=== PATIENT | male | born 1985 | race Asian ===

== ENCOUNTER 2021-09-15 08:22 | Day surgery (SDC) | payer OTHER ==
[2021-09-15] VITALS (10 sets, daily range): BP systolic 122–150; BP diastolic 62–91
[~2021-09-15] VITALS: Ht 162.6 cm; Wt 63.0 kg
--- NOTE | 2021-09-15 08:00 | NUR ---
PATIENT TO ROOM AMBULATORY. ADMISSION ASSESSMENT COMPLETED AT THIS TIME. CONSENT OBTAINED. DR MADDOX NOTIFIED. NEW ORDERS RECEIVED. IV ESTABLISHED. LABS SENT FOR REFERENCE. ORIENTED PATIENT TO ROOM AND UNIT. CALL LIGHT IN REACH. WILL CONTINUE TO MONITOR.
[2021-09-15 09:16] LABS: HEMATOCRIT 38.1 % (39.0-50.0); HEMOGLOBIN 12.2 g/dl (14.0-18.0); IMMATURE GRANULOCYTES 0.3 % (0.0-5.0); MEAN CELL VOLUME 93.8 fL CALC (80.0-100.0); NEUT# 4.22 thou/uL (1.82-7.42); RED BLOOD COUNT 4.06 mill/uL (4.70-6.10); RED CELL DISTRI WIDTH 12.4 % (11.5-15.5)
[2021-09-15 09:55] LABS: ALBUMIN 4.3 g/dL (3.2-5.0); ALKALINE PHOSPHATASE 63 u/l (38-126); ANION GAP 14 (6-22 (CALC)); BILIRUBIN, TOTAL 0.6 mg/dL (0.0-1.4); BUN 24 mg/dL (9-20); BUN/CREATININE RATIO 38 (12-20 (CALC)); CARBON DIOXIDE 27 mmol/l (22-30); CHLORIDE 103 mmol/l (95-108); CREATININE 0.6 mg/dL (0.7-1.3); GFR > 60 ML/MIN (>=60 (CALC)); GFR FOR AFR.AMER. > 60 ML/MIN (>=60 (CALC)); POTASSIUM 4.9 mmol/l (3.5-5.1); SGOT/AST 32 u/l (17-59); SODIUM 139 mmol/l (137-146); TOTAL PROTEIN 7.3 g/dL (6.3-8.2)
--- NOTE | 2021-09-15 20:00 | NUR ---
PT RESTING IN BED, NO SIGNS OF DISTRESS NOTED, RESP EVEN AND UNLABORED. PT ALERT AND ORIENTED TO SELF, DISCUSSED POC, NEEDS REINFORCMENT DUE TO ANR PROCEDURE. SKIN INTACT, O2 2L IN PLACE, SAFETY PRECAUTIONS DISCUSSED, BED ALARM FOR SAFETY, ASSESSMENT REVIEW COMPLETED, CALL LIGHT IN REACH,CONTINUE TO MONITOR.
--- NOTE | 2021-09-15 21:06 | NUR ---
PT CALLED OUT, APPEARS RESTLESS, REQUESTING FOR SOMETHING TO HELP HIM SLEEP, PT MEDICATED PER MAR, PT STATES HE IS HOT, ROOM COOLED AND BLANKET REMOVED, REMAINED WITH SHEET. BED ALARM IN PLACE, CALL LIGHT IN REACH,CONTINUE TO MONITOR.
--- NOTE | 2021-09-15 22:59 | NUR ---
PT IN BED RESTLESS, VITALS OBTAINED. PT GIVEN WATER, TOLERATED WELL. MEDICATED PER OCT. ENCOURAGED PO FLUIDS, PT VERBALIZED UNDERSTANDING. CALL LIGHT IN REACH, BED ALARM FOR SAFETY, CONTINUE TO MONITOR.
--- NOTE | 2021-09-16 | NUR ---
PT RESTING IN BED WITH EYES CLOSED, RESP EVEN AND UNLABORED. NO SIGNS OF DISTRESS NOTED, CALL LIGHT IN REACH,CONTINUE TO MONITOR.
--- NOTE | 2021-09-16 03:57 | NUR ---
PT RESTING IN BED, NO SIGNS OF DISTRESS NOTED, RESP EVEN AND UNLABORED. PT MEDICATED PER MAR, VOICES NO NEEDS OR COMPLAINTS AT THIS TIME, CALL LIGHT IN REACH,CONTINUE TO MONITOR.
[2021-09-16 04:00] VITALS: BP 156/90
[2021-09-16 05:14] LABS: HEMATOCRIT 38.4 % (39.0-50.0); HEMOGLOBIN 12.7 g/dl (14.0-18.0); IMMATURE GRANULOCYTES 0.3 % (0.0-5.0); MEAN CELL VOLUME 89.9 fL CALC (80.0-100.0); MEAN CORPUSCULAR HGB 29.7 pG CALC (26.0-32.0); MEAN CORPUSCULAR HGB CONC 33.1 g/dL CAL (32.0-36.0); NEUT# 8.7 thou/uL (1.82-7.42); RED BLOOD COUNT 4.27 mill/uL (4.70-6.10); RED CELL DISTRI WIDTH 12.3 % (11.5-15.5)
[2021-09-16 05:17] LABS: ALKALINE PHOSPHATASE 72 u/l (38-126); ANION GAP 13 (6-22 (CALC)); BILIRUBIN, TOTAL 0.4 mg/dL (0.0-1.4); BUN 14 mg/dL (9-20); BUN/CREATININE RATIO 21 (12-20 (CALC)); CARBON DIOXIDE 23 mmol/l (22-30); CHLORIDE 109 mmol/l (95-108); CREATININE 0.7 mg/dL (0.7-1.3); GFR > 60 ML/MIN (>=60 (CALC)); GFR FOR AFR.AMER. > 60 ML/MIN (>=60 (CALC)); MAGNESIUM 2.5 mg/dL (1.6-2.3); POTASSIUM 4.1 mmol/l (3.5-5.1); SGOT/AST 22 u/l (17-59); SODIUM 140 mmol/l (137-146); TOTAL PROTEIN 6.6 g/dL (6.3-8.2)
--- NOTE | 2021-09-16 08:00 | NUR ---
SHIFT CHANGE REPORT, PT GROGGY AND ORIENTED, STATES HE IS TIRED AND WANTS TO SLEEP, MEAL OFFERED BUT HE REFUSED, NEEDS ADDRESSED, CALL HERNADEZ IN REACH AND BED LOCKED IN LOWEST POSITION.
[2021-09-16 08:04] VITALS: BP 119/72
[2021-09-16] MEDS ORDERED: NALTREXONE50 MG PO (10:12)
[2021-09-16] MEDS ORDERED: CLONIDINE0.1 MG PO (10:12)
[2021-09-16] MEDS ORDERED: KLONOPIN0.5 MG PO (10:12)
[2021-09-16 11:37] VITALS: BP 104/56
--- NOTE | 2021-09-16 12:00 | NUR ---
RESTING IN BED, REFUSED MEAL, ASKING FOR "SOMETHING TO SLEEP" BUT ADVISED HE NEEDS TO BE UP FOR SHOWER TO GO HOME AND THAT SLEELPING MEDS ARE NOT GIVEN THIS TIME OF DAY. HE EVENTUALLY GOT OOB AND HAD SHOWER THEN WENT BACK IN BED TO REST, CALL HERNADEZ IN REACH.
--- NOTE | 2021-09-16 15:15 | NUR ---
Discharge instructions given. Patient verbalizes understanding of same. Discharged in stable condition via Wheelchair to Home with family. All belongings sent with pt.
[2021-09-16 15:18] VITALS: BP 125/74
== END 2021-09-16 15:53 | disposition home or self-care (01) | DRG 897 ==
LOC: ANR 08:22 → MS2 08:33 → ANR 15:37
PROVIDERS: ATTEND Anesthesiology
DX: F11.20 Opioid dependence, uncomplicated (principal)
CPT/HCPCS: J2060; J2354